=== PATIENT | male | born 1990 | race Hispanic/Latino ===

== ENCOUNTER 2017-06-15 22:46 | Emergency (ER) | payer OTHER ==
[2017-06-15 23:20] VITALS: BP 108/67; PULSE 59; RESP 18; TEMP 98.5; O2SAT 97
--- NOTE | 2017-06-15 23:36 | ED PDOC ---
HPI: Wound Care - HPI Time Seen by Provider: 06/15/17 23:18 Chief Complaint (Nursing): Abnormal Skin Integrity Chief Complaint (Provider): chin laceration History Per: Patient Additional Complaint(s): 26-year-old male presents with superficial laceration to chin sustained when he accidentally hit his chin with ski pole while skiing. Patient did not sustain loss of consciousness. States tetanus is up-to-date. He denies any loose teeth or acute pain. No headache, dizziness or vision changes. PMD: none Past Medical History Reviewed: Historical Data, Nursing Documentation, Vital Signs - Medical History PMH: No Chronic Diseases - Family History Family History: States: No Known Family Hx - Living Arrangements Living Arrangements: With Friends/Others - Social History Current smoker - smoking cessation education provided: No Alcohol: Social Drugs: Denies - Immunization History Hx Tetanus Toxoid Vaccination: Yes - Allergies Allergies/Adverse Reactions: Allergies Allergy/AdvReac Type Severity Reaction Status Date / Time No Known Allergies Allergy Verified 06/15/17 23:09 Review of Systems ROS Statement: Except As Marked, All Systems Reviewed And Found Negative Review Of Systems: ROS cannot be obtained secondary to pt's inabilty to answer questions. ENT: Positive for: Other (chin laceration) Physical Exam - Reviewed Nursing Documentation Reviewed: Yes Vital Signs Reviewed: Yes - Physical Exam Appears: Positive for: Well, Non-toxic, No Acute Distress Skin: Negative for: Rash Eye Exam: Positive for: Normal appearance ENT: Positive for: Other (1 cm superficial chin laceration noted with no active bleeding, neurovascular intact, full range of motion lower mandible, dentition intact) Neck: Positive for: Painless ROM Neurologic/Psych: Positive for: Alert, Oriented - ECG O2 Sat by Pulse Oximetry: 97 Pulse Ox Interpretation: Normal Procedure: Wound Repair - Time Performed Time Performed: 23:42 - Time Out Time Out: Side verified, Site verified, Patient ID confirmed - Consent Obtained Consent obtained: Verbal - Performed by Performed by: Mid-level Provider - Indications Indication(s):: Laceration - Location Location:: Chin Shape:: Linear Dimensions Length cm: 1 Depth:: Epidermis - Debris Debris:: None - Wound repair method Joe:: Tissue glue (dermabond applied then closure was reinforced with steri- strips), Steri-strips - Muscle repiar layer closed with Muscle repair layer closed with:: Wound well approximated, Tetanus up to date - Complications Complications: none - Patient tolerated procedure Patient Tolerated Procedure:: Well Medical Decision Making Medical Decision Makin26 year old with chin laceration Patient agrees to wound repair with glue by underwriter. See procedure note. Patient given wound care instructions. Disposition - Clinical Impression Clinical Impression: Chin laceration - Patient ED Disposition Is Patient to be Admitted: No Counseled Patient/Family Regarding: Diagnosis, Need For Followup - Disposition Referrals: [facility] [Outside] Disposition: Routine/Home Disposition Time: 23:36 Condition: STABLE Additional Instructions: KEEP WOUND CLEAN AND DRY, DO NOT GET WET. ALLOW STERI-STRIPS AND GLUE TO FLAKE OFF ON THEIR OWN. TYLENOL OR ADVIL FOR PAIN NEEDED. FOLLOW UP WITH PRIMARY CARE DOCTOR OR CLINIC. Instructions: Laceration Repair With Glue (DC)
== END 2017-06-15 23:41 | disposition home or self-care (01) ==
LOC: H.ER 22:46
DX: S01.81XA Laceration without foreign body of other part of head, initial encounter (principal); W22.8XXA Striking against or struck by other objects, initial encounter; Y93.23 Activity, snow (alpine) (downhill) skiing, snowboarding, sledding, tobogganing and snow tubing